=== PATIENT | female | born 1995 ===

== ENCOUNTER 2016-11-18 14:18 | Emergency (ER) | payer MEDICAID ==
[2016-11-18 14:24] VITALS: BMI 21.6
[2016-11-18 15:47] LABS: RBC URINE 6 /hpf (0-3); URINE BILIRUBIN NEGATIVE (NEGATIVE); URINE BLOOD NEGATIVE (NEGATIVE); URINE COLOR Yellow (YELLOW); URINE GLUCOSE (UA) NORMAL (Normal); URINE KETONE NEGATIVE (NEGATIVE); URINE LEUKOCYTE ESTERASE NEG Leu/uL (Negative); URINE PROTEIN NEGATIVE (NEGATIVE); URINE UROBILINOGEN NORMAL mg/dL (0.2-1.0); WBC URINE < 1 /hpf (0-5)
[2016-11-18 16:42] LABS: BASO % 0.5 % (0.0-2.0); EOS # 0.1 K/uL (0.0-0.7); EOS % 1.4 % (0.0-4.0); HEMATOCRIT 36.2 % (34.0-47.0); LYMPH # 2.4 K/uL (1.0-4.3); LYMPH % 37.6 % (20.0-40.0); MEAN CELL VOLUME 81.8 fL (81.0-99.0); MEAN CORPUSCULAR HEMOGLOBIN 27.1 pg (27.0-31.0); MEAN CORPUSCULAR HGB CONC 33.1 g/dL (33.0-37.0); MEAN PLATELET VOLUME 7.6 fL (7.2-11.7); MONO # 0.6 K/uL (0.0-0.8); RED CELL DISTRIBUTION WIDTH 13.1 % (11.5-14.5); WHITE BLOOD COUNT 6.4 K/uL (4.8-10.8)
[2016-11-18 16:49] LABS: CHLORIDE 100 mmol/L (98-107); POTASSIUM 4.5 mmol/L (3.6-5.2); SODIUM 139 mmol/L (132-148)
[2016-11-18 16:52] LABS: BLOOD UREA NITROGEN 11 mg/dL (7-17); CARBON DIOXIDE 24 mmol/L (22-30); GFR AFRICAN-AMERICAN > 60
[2016-11-18 16:53] LABS: GLUCOSE,RANDOM 72 mg/dL (65-105)
--- NOTE | 2016-11-18 17:59 | US ---
HISTORY: pelvic pain COMPARISON: None available. TECHNIQUE: Transabdominal and transvaginal FINDINGS: UTERUS: Measures 7.4 x 3.9 x 4.7 cm. Normal in size and appearance. No fibroid or other mass lesion seen. ENDOMETRIUM: Measures 15 mm in diameter. Unremarkable. CERVIX: No cervical abnormality identified. RIGHT OVARY: Measures 3.7 x 2.5 x 3.6 cm. No solid mass. Normal flow. LEFT OVARY: Measures 2.9 x 2.3 x 3.2 cm. No solid mass. Normal flow. FREE FLUID: No significant free fluid noted. OTHER FINDINGS: None. IMPRESSION: Unremarkable pelvic ultrasound.
--- NOTE | 2016-11-18 18:11 | C.PDOC ---
History Of Present Illness 21 y/o female presents to the ED with no hx of , stds and c/o low pelvic pain for 2 days .The patient states "feeling a a pop" in lower pelvic area. The patient denies fever, nausea , bleeding , sweats, constipation, dizziness, vomiting,and chills. Time Seen by Provider: 11/18/16 16:13 Chief Complaint (Nursing): Abdominal Pain History Per: Patient Onset/Duration Of Symptoms: Days Current Symptoms Are (Timing): Still Present Severity: Mild Pain Scale Rating Of: 4 Past Medical History Reviewed: Historical Data, Nursing Documentation, Vital Signs Vital Signs: Last Vital Signs Temp 98.6 F 11/18/16 18:34 Pulse 85 11/18/16 18:34 Resp 16 11/18/16 18:34 BP 105/67 11/18/16 18:34 Pulse Ox 100 11/22/16 12:20 - Medical History PMH: Denies: Diabetes, Hepatitis, HIV, HTN, Seizures, Sexually Transmitted Disease Surgical History: No Surg Hx Family History: States: No Known Family Hx - Social History Hx Tobacco Use: No Hx Alcohol Use: No Hx Substance Use: No - Immunization History Hx Tetanus Toxoid Vaccination: No Hx Influenza Vaccination: No Hx Pneumococcal Vaccination: No Review Of Systems Except As Marked, All Systems Reviewed And Found Negative. Constitutional: Negative for: Fever, Chills, Sweats Respiratory: Positive for: Shortness of Breath Gastrointestinal: Negative for: Nausea, Vomiting, Diarrhea Genitourinary: Positive for: Pelvic Pain (2 days of pain diffuse constant ). Negative for: Hematuria, Vaginal Bleeding Physical Exam - Physical Exam Appears: Well Skin: Warm, No Diaphoretic Head: Atraumatic, Normacephalic Oral Mucosa: Moist Tongue: Normal Appearing Neck: Supple Chest: Symmetrical Cardiovascular: Rhythm Regular Respiratory: Normal Breath Sounds, No Rales, No Rhonchi Gastrointestinal/Abdominal: No Tenderness, No Guarding, Other (mild diffuse and lower discomfort) Extremity: Normal ROM, Capillary Refill (<2sec.) Neurological/Psych: Oriented x3, Normal Speech, Normal Cognition Gait: Steady ED Course And Treatment - Laboratory Results Result Diagrams: 11/18/16 16:36 11/18/16 16:36 O2 Sat by Pulse Oximetry: 100 (RA) Progress Note: The patient had Blood Work, ,UA, and Pelvis/ transvaginal Ultrasound. The pelvic US was unremarkable . The laboratory/ Ultrasound examinations show no abnormalities. Upon, reevalaution, the patient has improved and is advised to have a follow up 1-2 days with PMD for further evalaution. Medical Decision Making Medical Decision Making: Patient felt better no elevating white count Disposition - Disposition Disposition: HOME/ ROUTINE Disposition Time: 18:10 Condition: STABLE Additional Instructions: Follow up with your SURVEILLANCE TECHNICIAN Forms: General Discharge Instructions, Work/School/Gym Excuse, [facility] (Libyan) - Clinical Impression Clinical Impression: Pelvic pain - Scribe Statement The provider has reviewed the documentation as recorded by the Scribe Rachel Gray All medical record entries made by the Ashibe were at my direction and personally dictated by me. I have reviewed the chart and agree that the record accurately reflects my personal performance of the history, physical exam, medical decision making, and the department course for this patient. I have also personally directed, reviewed, and agree with the discharge instructions and disposition.
[2016-11-18 18:34] VITALS: BP 105/67; PULSE 85; RESP 16; TEMP 98.6
[2016-11-22 11:53] VITALS: O2SAT 100
== END 2016-11-18 18:35 | disposition home or self-care (01) ==
LOC: C.ER 14:18
DX: R10.2 Pelvic and perineal pain (principal)

== ENCOUNTER 2017-07-30 20:07 | Emergency (ER) | payer MEDICAID ==
[2017-07-30 20:35] VITALS: BMI 22.6
[2017-07-30 20:56] LABS: SQUAMOUS EPITHIAL 2 /hpf (0-5); URINE AMORPHOUS SEDIMENT OCC /ul (<OCC); URINE BACTERIA OCC (<OCC); URINE BILIRUBIN NEGATIVE (NEGATIVE); URINE BLOOD NEGATIVE (NEGATIVE); URINE CLARITY Hazy (Clear); URINE COLOR Yellow (YELLOW); URINE GLUCOSE (UA) NORMAL (Normal); URINE LEUKOCYTE ESTERASE NEG Leu/uL (Negative); URINE PROTEIN NEGATIVE (NEGATIVE); URINE UROBILINOGEN NORMAL mg/dL (0.2-1.0)
--- NOTE | 2017-07-31 00:43 | OBHP ---
Datetime: 07/30/2017 20:22 IP Adm Impression: , intrauterine IP Chief Complaint Other: Dysuria; lower pelvic and low back pain IP Admit Plan: Discharge home Admit Comment, IP Provider: 21 y.o. , LMP 01/30/17, MISBAH 11/07/17, EGA 25w 5d c/o pelvic press ure/low back pain with radiation to lower abdomen x 3 days. Pain is worse when walking. Last had sex 1 month ago; was told to not have sex "as the placenta was moving down". Does not recall being told t o have placenta praevia. (+) dysuria x 1 week; denies urinary frequency. Denies fever chills. C/O low back pain, "along the middle". 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 pr ovider: Dr. Galvan: last visit 06/28/17; missed both F/U Ob ultrasound and visits this week . Not yet rescheduled. P Ob: VTOP x 2: age 14 and 15; both, very early; with D_C; nocomplicaitons. 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 Was prescribed meds - stopped taking them as she didn't feel good on them. Has not seen psych since. PSH: D_C x 2 NKDA Meds: PNV Soc Hx: denies tobacco, illicit drug or EtOH use. Lives with hermother. Employment, as above. Fam Hx: Mother alive 41 y.o. - lupus. Father younger than mother; no known med issues. PGM breast and possibly uterine cancers. P.E.: as above. Petite, in NAD. Weird affect. Awake, alert, oriented to time, person and place. P leasant and cooperative. Assessment: 21 y.o. P0020, 25w 5d, R/O UTI. FHR appropriate for gestational age. Clinically stab le. Plan: 1) U/A 2) Observe Addendum: -U/A: leuk esterase (-). S.G. 1.012. all else wnl/ (-) Assessment: Low back pelvic pain - most likely musculoskeletal. Instructed to invest in maternity support belt. Also, to increase p.o. intake of water (1/2 body weight in ounces of water.) Lastly, en couraged to make appointment with OB provider [place]. Patient is clincially stable. Plan: 1) discharge home 2) as above Pelvic Type - PN: Adequate Extremities - PN: Normal Abdomen - PN: Normal Back - PN: Normal Breast - PN: Normal Lungs - PN: Normal Heart - PN: Normal Thyroid - PN: Not Done Neurologic - PN: Normal HEENT - PN: Normal General - PN: Normal FHR - Baseline A Provider: 145 Contraction Comments Provider: none Comments, ACOG Physical Exam: Back: no CVA tenderness. 9=0 pointtender in midline, S1 Abdomen: Gravid. Soft. non tender in all quadrants Allother systems reviewed and arenegative Gestation - Est Wks by US: 25w 5d EGA AdmitDate IP: 25.5 Vital Signs Provider: Reviewed IP Chief Complaint: Other Dilatation, Provider: 0 Effacement, Provider: 40 Station, Provider: -3 Genitourinary Exam: Normal DTRs - PN: Not Done
[2017-07-31 01:38] VITALS: BP 108/71; PULSE 76; TEMP 98.7
== END 2017-07-30 21:36 | disposition home or self-care (01) ==
LOC: C.EROB 20:07
DX: O26.892 Other specified pregnancy related conditions, second trimester (principal); R10.2 Pelvic and perineal pain; M54.5 Low back pain; Z3A.25 25 weeks gestation of pregnancy